=== PATIENT | female | born 1940 | race Caucasian/White ===

== ENCOUNTER → 2018-06-11 08:38 | Outpatient (CLI) | payer MEDICARE, SELFPAY ==
--- NOTE | 2018-06-11 08:43 | AAVD_ITS ---
Reason For Study: Aortic Atherosclerosis Aorta Measurements Aorta Doppler Measurements Proximal aorta measures1.34cm x 1.38cm. in cross-Peak systolic flow velocities within the proximal sectional axis. aorta measure 197 cm/sec. Proximal aorta measures1.33cm. in longitudinal Peak systolic flow velocities within the mid axis. aorta measure 191 cm/sec. Mid aorta measures1.32cm x 1.40cm. in cross- Peak systolic flow velocities within the distal sectional axis. aorta measure 244 cm/sec. Mid aorta measures1.23cm. in longitudinal axis. Distal aorta measures1.06cm x 1.05cm. in cross- sectional axis. Distal aorta measures1.10cm. in longitudinal axis. Left Iliac Artery Left iliac artery measures 0.57cm x 0.57 cm. in the cross-sectional axis. Left iliac artery measures 0.52 cm. in the longitudinal axis. Peak systolic velocity in the left iliac artery measures 310 cm/sec. Right Iliac Artery Right iliac artery measures 0.65cm x 0.63 cm. in the cross-sectional axis. Right iliac artery measures 0.67 cm. in the longitudinal axis. Peak systolic velocity in the right iliac artery measures 215 cm/sec. Procedure Aorta IVC Iliac vasculature or bypass grafts [id number]. Exam performed in department. Interpretation Summary 1. No aneurysm seen 2. elevated psv throughout distal aorta and bilateral iliacs with right > left. Ordering Physician: Ronnie Sharma Referring Physician: Nargis Dill Performed By: Carolynn Krishnan, ROSA MARIA, RVT
--- NOTE | 2018-06-11 08:43 | ADU_ITS ---
Reason For Study: Aortic Atherosclerosis Right Velocities Left Velocities Ext. Iliac Artery, dist = 77 cm./sec. Ext Iliac Artery, dist = 204 cm./sec. Rt COMMUNITY COORDINATOR pre stenosis: 59 cm/s Common Femoral Artery, dist = 137 cm./sec. At stenosis: 668 cm/s Supf. Femoral Artery, prox = 133 cm./sec. Post stenosis: 202 cm/s. Supf. Femoral Artery, mid = 120 cm./sec. Supf Femoral Artery, prox = 202 cm./sec. Supf. Femoral Artery, dist = 112 cm./sec. Supf Femoral Artery, mid = 108 cm./sec. Profunda Femoral Artery = 106 cm./sec. Supf Femoral Artery, dist. = 63 cm./sec. Popliteal Artery, proximal, = 90 cm./sec. Profunda Femoral Artery = 109 cm./sec. Popliteal Artery, mid = 109 cm./sec. Popliteal Artery, prox. = 57 cm./sec. Popliteal Artery, distal = 68 cm./sec. Popliteal Artery, mid = 44 cm./sec. Post. Tibial Artery, prox = 51 cm./sec. Popliteal Artery, dist = 41 cm./sec. Post Tibial Artery, mid = 49 cm./sec. Post. Tibial Artery, prox = 39 cm./sec. Post Tibial Artery, dist. = 42 cm./sec. Post. Tibial Artery, mid = 30 cm./sec. Peroneal Artery, prox = 36 cm./sec. Post. Tibial Artery, dist = 24 cm./sec. Peroneal Artery, mid = 50 cm./sec. Peroneal Artery, prox = 26 cm./sec. Peroneal Artery,dist. = 30 cm./sec. Peroneal Artery, mid = 27 cm./sec. Ant.Tibial Artery, prox = 76 cm./sec. Peroneal Artery,dist = 30 cm./sec. Ant Tibial Artery, mid = 46 cm./sec. Ant. Tibial Artery, prox = 21 cm./sec. Ant. Tibial Artery, distal = 46 cm./sec. Ant. Tibial Artery, mid = 18 cm./sec. Lt DPA: 39 cm/s. Ant. Tibial Artery, dist = 15 cm./sec. Rt DPA: 9 cm/s. Procedure Exam performed in department. Interpretation Summary 1. Severe stenosis right COMMUNITY COORDINATOR. 2. Left leg with no stenosis. Ordering Physician: Ronnie Sharma Referring Physician: Nargis Dill Performed By: Carolynn Krishnan, ROSA MARIA, RVT
--- NOTE | 2018-06-18 07:56 | LEAS ---
Arterial Study - Arterial Study Arterial Study: Date of scan 06/11/[address] Sharma History: Hyperlipidemia hypertension with history of bilateral iliac stents with some increasing leg pain Interpretation: Right lower extremity slightly decreased waveform on the right compared to the left down at the ankle and out through the digits. Duplex shows biphasic flow of both vessels with the PT 0.61 DP 0.56. Great toe 0.4. Left lower extremity improved waveform noted at the ankle and out through the digits PT 0.81 DP 0.83. Left great toe 0.60. Impression 1. 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 Left lower extremity with mild arterial occlusive disease triphasic flow with an BELA 0.83
== END ==
PROVIDERS: Family Provider Nurse Practitioner Primary Care; PCP Nurse Practitioner Primary Care; Visit Provider Surgery Vascular Surgery
DX: I70.0 Atherosclerosis of aorta (principal); I77.1 Stricture of artery; I70.213 Atherosclerosis of native arteries of extremities with intermittent claudication, bilateral legs
CPT/HCPCS: 93922; 93925; 93978

== ENCOUNTER → 2018-07-04 13:06 | Outpatient (CLI) | payer MEDICARE, SELFPAY | PROVIDERS: Family Provider Nurse Practitioner Primary Care; PCP Nurse Practitioner Primary Care; Visit Provider Surgery Vascular Surgery | DX: I70.213 Atherosclerosis of native arteries of extremities with intermittent claudication, bilateral legs (principal) | CPT/HCPCS: 75635; Q9967 ==

== ENCOUNTER → 2019-04-15 08:46 | Outpatient (CLI) | payer MEDICARE, SELFPAY ==
--- NOTE | 2019-04-15 08:50 | ART_ITS ---
Reason For Study: Atheroslcerosis Procedure A bilateral lower extremity continuous wave Doppler with analog waveform analysis and ankle brachial indexes. Left Segmental Pressures Left brachial= 155mmHg. Left posterior tibial artery = 128mmHg. Left dorsalis pedis artery = 127mmHg. The left dorsalis pedis waveforms are triphasic. The left posterior tibial artery waveforms are triphasic. Right Segmental Pressures Right brachial= 153mmHg. Right posterior tibial artery = 130mmHg. Right dorsalis pedis artery = 116mmHg. The right dorsalis pedis waveforms are triphasic. The right posterior tibial artery waveforms are triphasic. Indices The right ankle brachial index by the dorsalis pedis is 0.75. The right ankle brachial index by the posterior tibial artery is 0.84. The left ankle brachial index by the dorsalis pedis is 0.82. The left ankle brachial index by the posterior tibial artery is 0.83. Interpretation Summary 1. mild occlusive disease at rest but triphasic flow and brooke 0.84/0.83. Ordering Physician: Ronnie Sharma Referring Physician: Nargis Dill Performed By: Susan Perla RVT
--- NOTE | 2019-04-15 08:50 | AAVD_ITS ---
Reason For Study: Atherosclerosis Aorta Measurements Aorta Doppler Measurements Proximal aorta measures1.0 x 1.03cm. in cross- Peak systolic flow velocities within the proximal sectional axis. aorta measure 229.9 cm/sec. Proximal aorta measures1.03cm. in longitudinal Peak systolic flow velocities within the mid aorta axis. measure 272.7 cm/sec. Mid aorta measures1.04 x 1.04cm. in cross- Peak systolic flow velocities within the distal sectional axis. aorta measure 253.1 cm/sec. Mid aorta measures1.02cm. in longitudinal axis. Distal aorta measures0.92 x 0.94cm. in cross- sectional axis. Distal aorta measures0.91cm. in longitudinal axis. Left Iliac Artery Left iliac artery measures 0.70 x 0.72 cm. in the cross-sectional axis. Left iliac artery measures 0.70 cm. in the longitudinal axis. Peak systolic velocity in the left iliac artery measures 329.8 cm/sec. Right Iliac Artery Right iliac artery measures 0.62 x 0.61 cm. in the cross-sectional axis. Right iliac artery measures 0.56 cm. in the longitudinal axis. Peak systolic velocity in the right iliac artery measures 190.4 cm/sec. Procedure Aorta IVC Iliac vasculature or bypass grafts [id number]. Exam performed in department. Interpretation Summary 1. Smaller aorta at 10mm and elevated velocities throughout. 2. Left peyman with severe stenosis and psv 329. Ordering Physician: Ronnie Sharma Referring Physician: Nargis Dill Performed By: Susan Perla RVT
== END ==
PROVIDERS: Family Provider Nurse Practitioner Primary Care; PCP Nurse Practitioner Primary Care; Referring Provider Surgery Vascular Surgery; Visit Provider Surgery Vascular Surgery
DX: I83.899 Varicose veins of unspecified lower extremity with other complications (principal); I87.2 Venous insufficiency (chronic) (peripheral); M70.88 Other soft tissue disorders related to use, overuse and pressure other site; Z48.812 Encounter for surgical aftercare following surgery on the circulatory system; I70.219 Atherosclerosis of native arteries of extremities with intermittent claudication, unspecified extremity; I10 Essential (primary) hypertension; F17.200 Nicotine dependence, unspecified, uncomplicated
CPT/HCPCS: 93922; 93925; 93978

== ENCOUNTER → 2022-03-29 | Outpatient (CLI) | payer MEDICARE, SELFPAY ==
--- NOTE | 2022-03-29 08:45 | ART_ITS ---
Reason For Study: atherosclerosis Procedure A bilateral lower extremity continuous wave Doppler with analog waveform analysis and ankle brachial indexes. Prelim called to Dr. Sharma's office. Left Segmental Pressures Left brachial= 170mmHg. Left posterior tibial artery = 100mmHg. Left dorsalis pedis artery = 92mmHg. The left dorsalis pedis waveforms are biphasic. The left posterior tibial artery waveforms are biphasic. Right Segmental Pressures Right brachial= 162mmHg. Right posterior tibial artery = 50mmHg. Right dorsalis pedis artery = 52mmHg. The right dorsalis pedis waveforms are monophasic. The right posterior tibial artery waveforms are monophasic. Indices The right ankle brachial index by the dorsalis pedis is .31. The right ankle brachial index by the posterior tibial artery is .29. The left ankle brachial index by the dorsalis pedis is .54. The left ankle brachial index by the posterior tibial artery is .59. VL/Ankle Brachial Index Interpretation Summary Right lower extremity severe occlusive disease and BELA 0.31. Left lower extremi ty moderate occlusive disease with an BELA 0.59. Ordering Physician: Ronnie Sharma Performed By: Jacob Hickman RVT
--- NOTE | 2022-03-29 08:45 | AAVD_ITS ---
Reason For Study: stricture of artery Aorta Measurements Aorta Doppler Measurements Proximal aorta measures.98 x 1.02cm. in cross- Peak systolic flow velocities within the proximal sectional axis. aorta measure 451.8 cm/sec. Proximal aorta measures.97cm. in longitudinal Peak systolic flow velocities within the mid aorta axis. measure 293.9 cm/sec. Mid aorta measures.98 x .96cm. in cross-sectional Peak systolic flow velocities within the distal axis. aorta measure 201.4 cm/sec. Mid aorta measures.98cm. in longitudinal axis. Distal aorta measures.88 .81cm. in cross-sectional axis. Distal aorta measures.88cm. in longitudinal axis. Left Iliac Artery Left iliac artery measures .53 x .55 cm. in the cross-sectional axis. Left iliac artery measures .55 cm. in the longitudinal axis. Peak systolic velocity in the left iliac artery measures 346.4 cm/sec. Right Iliac Artery Right iliac artery measures .52 x .5 cm. in the cross-sectional axis. Right iliac artery measures .59 cm. in the longitudinal axis. Peak systolic velocity in the right iliac artery measures 275.8 cm/sec. Procedure Aorta IVC Iliac vasculature or bypass grafts 36024. The exam was diagnostic. Exam performed in department. VL/Abd Aortic/IVC Duplex scan Interpretation Summary Aorta with severe stenosis noted with PSV of 451. Right common iliac with moder ate to severe stenosis. Left common iliac with severe stenosis. Ordering Physician: Ronnie Sharma Performed By: Jacob Hickman RVT
--- NOTE | 2022-03-29 08:46 | ADUL_ITS ---
Reason For Study: atherosclerosis Right Velocities Ext. Iliac Artery, dist = 146.2 cm./sec. Common Femoral Artery, mid = 85.5 cm./sec. Supf Femoral Artery, prox = 62.1 cm./sec. Supf Femoral Artery, mid = 75.7 cm./sec. Supf Femoral Artery, dist. = 284.8 cm./sec. Profunda Femoral Artery = 83.0 cm./sec. Popliteal Artery, mid = 38.8 cm./sec. Ant. Tibial Artery, prox = 24.8 cm./sec. Ant. Tibial Artery, mid = 23.7 cm./sec. Ant. Tibial Artery, dist = 22.6 cm./sec. Post. Tibial Artery, prox = 30.2 cm./sec. Post. Tibial Artery, mid = 32.7 cm./sec. Post. Tibial Artery, dist = 14.2 cm./sec. Peroneal Artery, prox = 19.3 cm./sec. Peroneal Artery, mid = 22.6 cm./sec. Peroneal Artery,dist = 16.0 cm./sec. /US Art Duplex Unilat Lower Ext Interpretation Summary Right lower extremity with triphasic flow the common femoral and the profunda. Moderate to severe stenosis in the distal femoral artery. Ordering Physician: Ronnie Sharma Performed By: Jacob Hickman RVT
== END | disposition home or self-care (01) ==
LOC: CVS 08:41
PROVIDERS: PCP Nurse Practitioner Primary Care; Referring Provider Surgery Vascular Surgery; Visit Provider Surgery Vascular Surgery
DX: I77.1 Stricture of artery (principal); I70.213 Atherosclerosis of native arteries of extremities with intermittent claudication, bilateral legs; I71.4 Abdominal aortic aneurysm, without rupture; I83.899 Varicose veins of unspecified lower extremity with other complications; I87.2 Venous insufficiency (chronic) (peripheral); M70.88 Other soft tissue disorders related to use, overuse and pressure other site; I10 Essential (primary) hypertension; F17.200 Nicotine dependence, unspecified, uncomplicated
CPT/HCPCS: 93922; 93926; 93978

== ENCOUNTER → 2022-04-12 | Outpatient (CLI) | payer MEDICARE, SELFPAY ==
[2022-04-12 10:44] LABS: BUN 16 mg/dL (7-18); Creatinine, Serum 0.66 mg/dL (0.55-1.02); EST Glomerular Filtration Rate 92 mL/min (>60); Est Glom Filt Rate - Afr Amer 111 mL/min (>60)
== END | disposition home or self-care (01) ==
LOC: LAB 08:13
PROVIDERS: PCP Nurse Practitioner Primary Care; Referring Provider Surgery Vascular Surgery; Visit Provider Surgery Vascular Surgery
DX: I70.213 Atherosclerosis of native arteries of extremities with intermittent claudication, bilateral legs (principal); I77.1 Stricture of artery; I70.0 Atherosclerosis of aorta; I70.219 Atherosclerosis of native arteries of extremities with intermittent claudication, unspecified extremity; I83.899 Varicose veins of unspecified lower extremity with other complications; I87.2 Venous insufficiency (chronic) (peripheral); M70.88 Other soft tissue disorders related to use, overuse and pressure other site; I10 Essential (primary) hypertension; F17.200 Nicotine dependence, unspecified, uncomplicated; Z48.812 Encounter for surgical aftercare following surgery on the circulatory system
CPT/HCPCS: 36415; 82565; 84520

== ENCOUNTER → 2022-04-17 | Outpatient (CLI) | payer MEDICARE, SELFPAY ==
--- NOTE | 2022-04-17 06:52 | CT_ITS ---
STUDY: CTA OF THE ABDOMINAL AORTA AND BILATERAL LOWER EXTREMITIES REASON FOR EXAM: Female, 81 years old. ATHEROSCLEROSIS. Right foot numbness for 2 weeks. Previous left lower extremity stenting. RADIATION DOSAGE (If Supplied By Facility): CTDIvol = ( 5.29 ) mGy, DLP = ( 840.28 ) mGycm TECHNIQUE: Axial CT angiography multi-detector data acquisition was obtained from the dome of the liver to the level of the ankles following intravenous administration of IV 100mL Isovue-370. Axial images and MIP images were reconstructed from the axial data set. Post-processing of the angiographic images was performed, with multiplanar reformation and 3D reconstruction. Individualized dose optimization techniques were used for this CT. TECHNICAL QUALITY: Good COMPARISON: Comparison is made with prior examination dated 07/04/2018. Descriptors of Narrowing: None (0%) Mild (< 50%) Moderate (50-70%) Severe (70-90%) Subtotal/Total Occlusion (90-100%) Non-Evaluable (technically non-diagnostic FINDINGS: Coronary artery calcification. Calcification of the mitral valve annulus. Abdominal aorta: Extensive calcific plaque at the level of the abdominal aorta with subtotal occlusion at the level of the renal arteries. Is also evidence of extensive plaque formation in the distal portion of the abdominal aorta. Celiac and superior mesenteric arteries: Extensive plaque formation at the origin of the superior mesenteric and celiac arteries. Inferior mesenteric artery: Not visualized Right renal artery(arteries): Atherosclerotic plaque formation at the origin of the right renal artery. Left renal artery(arteries): Atherosclerotic plaque formation at the origin of the left renal artery. Right common iliac artery: Extensive plaque formation of the common iliac artery with areas of narrowing. Right external iliac artery: Nonstenotic calcific plaques. Right internal iliac artery: No demonstrated narrowing. Left common iliac artery: Extensive plaque formation causing mild stenoses. Left external iliac artery: Calcific plaques. Left internal iliac artery: No demonstrated narrowing. RIGHT LOWER EXTREMITY Right common femoral artery: No demonstrated narrowing. Right profundus femoris: No demonstrated narrowing. Right superficial femoral: Scattered calcific plaques. Right popliteal artery: Scattered calcific plaques. Right tibioperoneal trunk: No demonstrated narrowing. Right anterior tibial artery: No demonstrated narrowing. Right posterior tibial artery: No demonstrated narrowing. Right peroneal artery: No demonstrated narrowing. LEFT LOWER EXTREMITY Left common femoral artery: Calcific plaques throughout its course. Left profundus femoris: No demonstrated narrowing. Left superficial femoral: Nonstenotic calcific plaques. Left popliteal artery: Stenotic calcific plaques. Left tibioperoneal trunk: Stenotic calcific plaques. Left anterior tibial artery: No demonstrated narrowing. Left posterior tibial artery: No demonstrated narrowing. Left peroneal artery: No demonstrated narrowing. CT/CTA Abd w/Runoff W/WO Contrast IMPRESSION: Once again, diffuse aortoiliac atherosclerotic calcific plaques with mild stenosis. Diffuse plaques involving both lower extremity arteries. Electronically Signed: Leonid Espinosa MD at 14:36 EDT ,
== END | disposition home or self-care (01) ==
LOC: CT 06:45
PROVIDERS: PCP Nurse Practitioner Primary Care; Referring Provider Surgery Vascular Surgery; Visit Provider Surgery Vascular Surgery
DX: I70.213 Atherosclerosis of native arteries of extremities with intermittent claudication, bilateral legs (principal); I77.1 Stricture of artery; I70.0 Atherosclerosis of aorta; I70.219 Atherosclerosis of native arteries of extremities with intermittent claudication, unspecified extremity; I83.899 Varicose veins of unspecified lower extremity with other complications; I87.2 Venous insufficiency (chronic) (peripheral); M70.88 Other soft tissue disorders related to use, overuse and pressure other site; I10 Essential (primary) hypertension; F17.200 Nicotine dependence, unspecified, uncomplicated; Z48.812 Encounter for surgical aftercare following surgery on the circulatory system
CPT/HCPCS: 75635; Q9967